=== PATIENT | male | born 1975 | race Hispanic/Latino ===

== ENCOUNTER 2017-05-01 07:04 | Emergency (ER) | payer OTHER ==
[2017-05-01 07:12] VITALS: BMI 27.4
[2017-05-01 07:21] VITALS: TEMP 98.9
--- NOTE | 2017-05-01 07:27 | ED PDOC ---
Arrival/HPI - General Chief Complaint: ENT Problem Time Seen by Provider: 05/01/17 07:13 Historian: Patient - History of Present Illness Narrative History of Present Illness (Text): 05/01/17 07:18 A 42 year old male, whose past medical history includes epilepsy, presents to the emergency department complaining of right sided neck pain radiating to right ear since yesterday. Patient reports having difficulty swallowing as it worsens the pain. Patient describes pain as sharp. He mentions pain was not so bad yesterday but worsened this morning. Patient notes experiencing slight cough, but denies of any fever, rhinorrhea, phlegm, injuries, or any other complaints. Also, patient mentions he has taken no pain medications. NKDA. No PMD Time/Duration: 24 hours Symptom Onset: Gradual Symptom Course: Unchanged Quality: Other (sharp) Context: Home Past Medical History - Provider Review Nursing Documentation Reviewed: Yes - Infectious Disease Hx of Infectious Diseases: None - Tetanus Immunization Tetanus Immunization: Unknown - Cardiac Hx Cardiac Disorders: No - Pulmonary Hx Respiratory Disorders: No - Neurological Hx Neurological Disorder: Yes - HEENT Hx HEENT Disorder: No - Renal Hx Renal Disorder: No - Endocrine/Metabolic Hx Endocrine Disorders: No - Hematological/Oncological Hx Blood Disorders: No - Integumentary Hx Dermatological Disorder: No - Musculoskeletal/Rheumatological Hx Musculoskeletal Disorders: No - Gastrointestinal Hx Gastrointestinal Disorders: No - Genitourinary/Gynecological Hx Genitourinary Disorders: No - Psychiatric Hx Psychophysiologic Disorder: No Hx Substance Use: No - Past Surgical History Past Surgical History: No Previous - Suicidal Assessment Feels Threatened In Home Enviroment: No Family/Social History - Physician Review Nursing Documentation Reviewed: Yes Family/Social History: No Known Family HX Smoking Status: Light Smoker < 10 Cigarettes Daily Hx Alcohol Use: Yes Frequency of alcohol use: Socially Hx Substance Use: No Hx Substance Use Treatment: No Allergies/Home Meds Allergies/Adverse Reactions: Allergies No Known Allergies Allergy (Verified 09/25/15 12:43) Review of Systems - Physician Review All systems were reviewed & negative as marked: Yes - Review of Systems Constitutional: absent: Fevers, Other (no injuries) ENT: Other (right ear pain radiating from neck pain). absent: Rhinorrhea Respiratory: Cough (slight cough, no phlegm) Musculoskeletal: Neck Pain (right neck pain with associated dysphagia) Physical Exam - Physical Exam Narrative Physical Exam (Text): Constitutional: No acute distress. Head: Normocephalic. Atraumatic. Eyes: PERRL. ENT: Moist mucous membranes, TM normal, No erythema, no exudates, uvula midline Neck: No bruit, supple Cardiovascular: Regular rate. Chest: No tenderness. Respiratory: Clear to auscultation bilaterally. GI: Soft. Nontender. Nondistended. Back: No CVA tenderness. Musculoskeletal: No tenderness or swelling of extremities. Skin: No rash. Neurologic: Alert, no focal deficit. No facial droop. No ptosis. Vital Signs Reviewed: Yes Vital Signs Temp Pulse Resp BP Pulse Ox 05/01/17 07:05 98.9 F 77 16 125/88 95 Temperature: Afebrile Blood Pressure: Normal Pulse: Regular Respiratory Rate: Normal Appearance: Positive for: Well-Appearing Pain Distress: None Mental Status: Positive for: Alert and Oriented X 3 Medical Decision Making ED Course and Treatment: 05/01/17 07:25 Impression: 42 year old male with right sided neck pain from angle of mandible radiating to right ear with painful swallowing. Physical exam shows no bruit, no erythema, no exudates, uvula midline; TM normal. Plan: -- Decadron -- Toradol -- Reassess and disposition Prior Visits: Notes and results from previous visits were reviewed. On 09/25/2015 for left-sided back pain from the rib level to the lumbar region. Patient was discharged home. Discharge home, f/u PMD, instructed to return to ED immediately for worsening pain, fever, difficulty swallowing, voice change, or any other problem. - Medication Orders Current Medication Orders: Discontinued Medications Dexamethasone (Decadron) 10 mg PO STAT STA Stop: 05/01/17 07:25 Ketorolac Tromethamine (Toradol) 60 mg IM STAT STA Stop: 05/01/17 07:25 - Scribe Statement The provider has reviewed the documentation as recorded by the Ericka Henriquez Provider Scribe Attestation: All medical record entries made by the Scribe were at my direction and personally dictated by me. I have reviewed the chart and agree that the record accurately reflects my personal performance of the history, physical exam, medical decision making, and the department course for this patient. I have also personally directed, reviewed, and agree with the discharge instructions and disposition. Disposition/Present on Arrival - Present on Arrival Any Indicators Present on Arrival: No History of DVT/PE: No History of Uncontrolled Diabetes: No Urinary Catheter: No History of Decub. Ulcer: No History Surgical Site Infection Following: None - Disposition Have Diagnosis and Disposition been Completed?: Yes Diagnosis: Throat pain Disposition: HOME/ ROUTINE Disposition Time: 07:49 Patient Plan: Discharge Condition: STABLE Discharge Instructions (ExitCare): Pharyngitis (ED) Prescriptions: Ibuprofen [Motrin] 600 mg PO Q6 #25 tab Referrals: Malik Bui, [Primary Care Provider] - Follow up with primary Forms: [employer] (French)
[2017-05-01 08:31] VITALS: BP 118/79; PULSE 63; RESP 18; O2SAT 96
== END 2017-05-01 08:31 | disposition home or self-care (01) ==
LOC: ED 07:04
DX: R07.0 Pain in throat (principal)
CPT/HCPCS: 96372; 99283; J1885; J8540